=== PATIENT | female | born 1980 | race Caucasian/White ===

== ENCOUNTER → 2016-12-07 | Day surgery (SDC) | payer BC ==
--- NOTE | 2016-12-06 19:56 | Pre-Procedure Note/Attestation ---
Pre-Procedure Note/Attestation Complete Prior to Procedure Planned Procedure: right Procedure Narrative: rt thumb trigger thumb release Indications for Procedure Pre-Operative Diagnosis: rt trigger thumb Attestation I attest that I discussed the nature of the procedure; its benefits; risks and complications; and alternatives (and the risks and benefits of such alternatives ), prior to the procedure, with the patient (or the patient's legal enrollment representative). I attest that, if there was a reasonable possibility of needing a blood transfusion, the patient (or the patient's legal enrollment representative) was given the [facility] standardized written summary, pursuant to the Demarco Toro Blood Safety Act ([place] Health and Safety Code # 1645, as amended). I attest that I re-evaluated the patient just prior to the surgery and that there has been no change in the patient's H&P, except as documented below:NONE TIM RODRIGUEZ Dec 06, 2016 19:56
[2016-12-07] VITALS (11 sets, daily range): BP systolic 107–119; BP diastolic 61–74
[~2016-12-07] VITALS: Ht 170.2 cm; Wt 51.7 kg
[~2016-12-07] MED LIST: Alfentanil 2ml Inj ONE; Atropine Inj 1mg/10ml Syr IV PRN; Bupivacaine 0.25% Inj 30ml INJ ONE; CLARITIN10 MG ORAL; D5 1/2NS 1,000 ML IV SCH; Dexamethasone 4mg/ml vial ONE; DiphenhydrAMINE 50mg/ml Inj IVP PRN; HYDROmorphone 1mg/ml Carpuject SUBQ PRN; Hydromorphone 0.5mg/0.5ml inj IVP PRN; Ketorolac 30mg Inj IV PRN; Ketorolac 60mg Inj IV PRN; LORazepam Inj 2mg/ml 1ml IV PRN; LR 1000ml 1,000 ML IVLG SCH; LR 1000ml ONE; Labetalol 5mg/ml 20ml vial IV PRN; Lidocaine 1% MPF 10mg/ml 5ml ONE; Lidocaine 1% Plain 30 ml INJ ONE; Meperidine 25mg/ml Inj IV PRN; Metoclopramide 10mg/2ml Inj IVP PRN; Midazolam 2mg/2ml Inj IVP PRN; Midazolam 2mg/2ml Inj ONE; NS Irrig 1000ml ONE; Norco 5mg/325mg tab ORAL PRN; Norco 7.5mg/325mg tab ORAL PRN; Oxycodone/Acetaminophen 5-325 ORAL PRN; PSEUDOEPHEDRINE60 MG PO; Propofol 10mg/ml 20ml IV ONE; Sterile Water Irrig 1000ml IRRIG ONE; Tylenol #3 tab (300mg/30mg) ORAL PRN; ZYRTEC10 MG ORAL; ceFAZolin 1gm/50ml Premix 50 ML IV ONE; celeBREX 200mg Cap **SURGERY PATIENTS ONLY ORAL ONE; fentaNYL 100 mcg/2 mL IV PRN; oxyCONTIN 20mg tab ORAL ONE
--- NOTE | 2016-12-07 09:27 | Anethesia Preoperative Eval ---
Anesthesia Pre-op PMH/ROS General Date of Evaluation: Dec 07, 2016 Time of Evaluation: 09:41 Anesthesiologist: Anna ASA Score: ASA 2 Mallampati Score Class I : Soft palate, uvula, fauces, pillars visible Class II: Soft palate, uvula, fauces visible Class III: Soft palate, base of uvula visible Class IV: Only hard plate visible Mallampati Classification: Class II Surgeon: Sahara Diagnosis: R Thumb Trigger Finger Surgical Procedure: R Thumb Trigger Finger Release Anesthesia History: none Family History: no anesthesia problems Allergies: Coded Allergies: CIPROFLOXACIN (Verified Adverse Reaction, Severe, Arthralgia/ Nausea, ) Medications: see eMAR Past Medical History Neurologic/Psychiatric: Reports: other - Concusion 1 yr 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 Exam Physician Exam Last Vital Signs Date Time Temp Pulse Resp B/P Pulse Ox O2 Delivery O2 Flow Rate FiO2 12/07/16 08:39 97.9 84 18 110/68 100 Room Air Constitutional: NAD Neurologic: CN 2-12 intact Cardiovascular: RRR Respiratory: CTA Gastrointestinal: S/NT/ND Airway Exam Mallampati Score: Class II MO: full ROM: full Teeth: intact Anesthesia Pre-op A/P Risk Assessment & Plan Assessment: ASA 2 Plan: GA Status Change Before Surgery: No Pre-Antibiotics Dru Gram Ancef IV Given Within 1 Hr of Incision: Yes Time Given: 09:51 Alphonso Castillo MD Dec 07, 2016 09:27
--- NOTE | 2016-12-07 09:29 | Immediate Post-Op Evaluation ---
Immediate Post-Op Evalulation Immediate Post-Op Evalulation Procedure: R Thumb Trigger Finger Release Date of Evaluation: Dec 07, 2016 Time of Evaluation: 10:44 IV Fluids: 400 LR Blood Products: 0 Estimated Blood Loss: 2 Urinary Output: 0 Blood Pressure Systolic: 119 Blood Pressure Diastolic: 74 Pulse Rate: 75 Respiratory Rate: 16 O2 Sat by Pulse Oximetry: 100 Temperature (Fahrenheit): 98.6 Pain Score (1-10): 1 Nausea: No Vomiting: No Complications 0 Patient Status: awake, reacts, patent, none Hydration Status: adequate Dru Gram Ancef IV Given Within 1 Hr of Incision: Yes Alphonso Castillo MD Dec 07, 2016 09:29
--- NOTE | 2016-12-07 09:30 | 48 Hour Post Anesthesia Eval ---
Post Anesthesia Evaluation Procedure: R Thumb Trigger Finger Release Date of Evaluation: Dec 07, 2016 Time of Evaluation: 12:53 Blood Pressure Systolic: 117 0: 67 Pulse Rate: 73 Respiratory Rate: 18 Temperature (Fahrenheit): 98.6 O2 Sat by Pulse Oximetry: 100 Airway: patent Nausea: No Vomiting: No Pain Intensity: 1 Hydration Status: adequate Cardiopulmonary Status: Stable Mental Status/LOC: patient returned to baseline Follow-up Care/Observations: 0 Post-Anesthesia Complications: 0 Follow-up care needed: ready to discharge Alphonso Castillo MD Dec 07, 2016 09:30
--- NOTE | 2016-12-07 22:08 | Operative Note - Dictated ---
DATE OF OPERATION: 12/07/2016 PREOPERATIVE DIAGNOSIS: Right thumb trigger thumb, chronic, nonresponsive to nonoperative treatment. POSTOPERATIVE DIAGNOSIS: Right thumb trigger thumb, chronic, nonresponsive to nonoperative treatment. PROCEDURE: Right thumb trigger thumb release. SURGEON: Hayden Shoemaker M.D. GROUND OPERATIONS SUPERINTENDENT: Geovanna Childs PA-C. ANESTHESIOLOGIST: Alphonso Castillo M.D. ANESTHESIA: General LMA anesthesia. EBL: Less than 20 mL. TOURNIQUET TIME: 15 minutes. COMPLICATIONS: None. BRIEF HISTORY: The patient is a pleasant 35-year-old lady, who has had ongoing triggering of the thumb. She failed nonoperative treatment. After full discussion of the risks and benefits of the surgery and complications associated with it including infection, bleeding, neurovascular complication, possible reinjury to the digital nerve, possibility of recurrence of triggering, possibility of scar tissue, possible sensitivity over the scar tissue, decreased environmental engineer strength, and other complications that may arise, she opted for surgical treatment as described above. OPERATIVE PROCEDURE: The patient was brought to the operating table and was placed supine. All pressure points were well padded. General LMA anesthesia was induced. Right hand was prepped and draped in usual sterile fashion. The right hand was exsanguinated. Tourniquet was inflated to 275 mmHg. The right thumb IP joint was then bent and an incision was made on the volar aspect of the thumb at the level of the demetrio. The incision was very superficial and care was given not to damage the digital nerve on the knee. At this point, using the Littler scissors, the dissection was undertaken subcutaneously and the retractors were placed in the medial and lateral aspect of the tendon to retract the digital nerves. At this point, the demetrio could be visualized and using a knife, the A1 demetrio was then incised. The incision was then taken distally using scissors and proximally using scissors. Part of the demetrio was then resected to avoid recurrent scarring. Once this was completed and the release was completed, the tendon was then visualized. A clamp was placed underneath the tendon. The finger was bent and straightened and the tendon was swollen proximally. At this point, all wounds were thoroughly irrigated using copious amount of fluid. The area of the incision was injected with 0.5% Marcaine plain. The incision was then sutured using horizontal mattress sutures with 4-0 nylon interrupted sutures. Sterile dressing was applied and the tourniquet was deflated. The patient tolerated the procedure well without any complications and taken to recovery room in stable condition. Hayden Cori Shoemaker DR: JULY JOB#: [id number] CC: TAMRA
== END | disposition home or self-care (01) ==
LOC: SUR 08:19
DX: M65.311 Trigger thumb, right thumb (principal); G43.909 Migraine, unspecified, not intractable, without status migrainosus; E55.9 Vitamin D deficiency, unspecified; F17.210 Nicotine dependence, cigarettes, uncomplicated; Z90.49 Acquired absence of other specified parts of digestive tract; Z88.3 Allergy status to other anti-infective agents
CPT/HCPCS: 26055; J0690; J1100; J2001; J2250; J2405; J2704; J3490; J7120; 94003; 94150

== ENCOUNTER 2017-02-28 14:30 | Outpatient (RCR) | payer BC ==
[~2017-02-28 14:30] MED LIST changes: -Alfentanil 2ml Inj ONE; -Atropine Inj 1mg/10ml Syr IV PRN; -Bupivacaine 0.25% Inj 30ml INJ ONE; -D5 1/2NS 1,000 ML IV SCH; -Dexamethasone 4mg/ml vial ONE; -DiphenhydrAMINE 50mg/ml Inj IVP PRN; -HYDROmorphone 1mg/ml Carpuject SUBQ PRN; -Hydromorphone 0.5mg/0.5ml inj IVP PRN; -Ketorolac 30mg Inj IV PRN; -Ketorolac 60mg Inj IV PRN; -LORazepam Inj 2mg/ml 1ml IV PRN; -LR 1000ml 1,000 ML IVLG SCH; -LR 1000ml ONE; -Labetalol 5mg/ml 20ml vial IV PRN; -Lidocaine 1% MPF 10mg/ml 5ml ONE; -Lidocaine 1% Plain 30 ml INJ ONE; -Meperidine 25mg/ml Inj IV PRN; -Metoclopramide 10mg/2ml Inj IVP PRN; -Midazolam 2mg/2ml Inj IVP PRN; -Midazolam 2mg/2ml Inj ONE; -NS Irrig 1000ml ONE; -Norco 5mg/325mg tab ORAL PRN; -Norco 7.5mg/325mg tab ORAL PRN; -Oxycodone/Acetaminophen 5-325 ORAL PRN; -Propofol 10mg/ml 20ml IV ONE; -Sterile Water Irrig 1000ml IRRIG ONE; -Tylenol #3 tab (300mg/30mg) ORAL PRN; -ceFAZolin 1gm/50ml Premix 50 ML IV ONE; -celeBREX 200mg Cap **SURGERY PATIENTS ONLY ORAL ONE; -fentaNYL 100 mcg/2 mL IV PRN; -oxyCONTIN 20mg tab ORAL ONE
== END 2017-03-04 | disposition home or self-care (01) ==
LOC: PTY 14:30
DX: M65.311 Trigger thumb, right thumb (principal)

== ENCOUNTER 2017-03-10 15:30 | Outpatient (RCR) | payer BC | END 2017-04-04 | disposition home or self-care (01) | LOC: PTY 15:30 | DX: M65.311 Trigger thumb, right thumb (principal) ==

== ENCOUNTER 2017-04-07 16:00 | Outpatient (RCR) | payer BC | END 2017-05-05 | disposition home or self-care (01) | LOC: PTY 16:00 | DX: M65.311 Trigger thumb, right thumb (principal) ==